=== PATIENT | male | born 1965 | race Two or more races ===

== ENCOUNTER 2019-09-28 10:06 | Emergency (ER) | payer BC ==
[2019-09-28] MEDS ORDERED: Pantoprazole 40 MG Vial IVPUSH ONE (10:13)
[2019-09-28] MEDS ORDERED: Alum Hydroxide/Mag Hydroxide 15 ML, Lidocaine 2% 15 ML PO ONE ×2 (10:13)
[2019-09-28] MEDS ORDERED: Sodium Chloride 0.9% 10 ML Syringe FLUSH PRN (10:13)
[2019-09-28] MEDS ORDERED: Aspirin 81 MG Tab.Chew PO ONE (10:14)
[2019-09-28] MEDS ORDERED: Ondansetron 4 MG/2 ML SDV IVPUSH ONE (10:24)
[2019-09-28] MEDS ORDERED: Iopamidol 755 Mg/ML 100 ML Bottle IV ONE (10:29)
[2019-09-28] MEDS ORDERED: HYDROmorphone 2 MG/ML SDV IVPUSH ONE (10:37)
[2019-09-28] MEDS ORDERED: Sodium Chloride 0.9% 1,000 ML IV SCH (10:45)
[2019-09-28] MEDS ORDERED: Prochlorperazine 10 MG/2 ML SDV IVPUSH ONE (11:22)
[2019-09-28] MEDS ORDERED: Ondansetron 4 MG Tab.DIS PO ONE (12:48)
[2019-09-28] MEDS ORDERED: Acetaminophen/oxyCODONE 325-5 MG Tab PO ONE (12:48)
--- NOTE | 2019-09-28 12:51 | EDM.PDOC ---
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 Rated severe,nothing helping. Sudden onset about 6:30 AM. He is previously healthy with the exception of HTN and tobacco abuse. He also endorses a h/o PUD last year,stress ulcer related. Epigastric Pain Score (Numeric/FACES): 8 - Related Data Allergies Allergy/AdvReac Type Severity Reaction Status Date / Time No Known Allergies Allergy Verified 09/28/19 10:24 Social & Family History - Tobacco Use Smoking Status *Q: Current Every Day Smoker ED ROS GENERAL - Review of Systems Review Of Systems: Comprehensive ROS is negative, except as noted in HPI. ED EXAM, GI/ABD - Physical Exam Exam: See Below Exam Limited By: No Limitations General Appearance: Alert Nose: Normal Inspection Respiratory/Chest: No Respiratory Distress, Lungs Clear Cardiovascular: Normal Peripheral Pulses GI/Abdominal Exam: Normal Bowel Sounds, Soft, No Mass, Distended, Tender. No: Guarding, Mass, Hepatomegaly, Splenomegaly Neurological: Alert, Oriented, CN II-XII Intact Psychiatric: Normal Affect, Normal Mood Skin Exam: Warm Lymphatic: No Adenopathy Course - Vital Signs Last Recorded V/S: Last Vital Signs Temp 97.3 F 09/28/19 10:06 Pulse 90 09/28/19 10:06 Resp 18 09/28/19 10:06 BP 146/91 H 09/28/19 10:06 Pulse Ox 94 L 09/28/19 10:06 - Orders/Labs/Meds Orders: Active Orders 24 hr Category Date Time Status EKG Documentation Completion [RC] ASDIRECTED Care 09/28/19 10:13 Active Chest Abdomen Pelvis w Cont [CT] Stat Exams 09/28/19 10:13 Taken Gallbladder [Abdomen Ltd] [US] Stat Exams 09/28/19 11:55 Taken Sodium Chloride 0.9% [Normal Saline] 1,000 ml Med 09/28/19 10:45 Active IV ASDIRECTED Sodium Chloride 0.9% [Saline Flush] Med 09/28/19 10:13 Active 10 ml FLUSH ASDIRECTED PRN Peripheral IV Insertion Adult [OM.PC] Routine Oth 09/28/19 10:12 Ordered EKG 12 Lead [EK] Routine Ther 09/28/19 10:12 Ordered Medication Orders Sodium Chloride (Normal Saline) 1,000 mls @ 999 mls/hr IV ASDIRECTED MELVIN Last Admin: 09/28/19 10:17 Dose: 999 mls/hr Documented by: GODFREY Sodium Chloride (Saline Flush) 10 ml FLUSH ASDIRECTED PRN PRN Reason: Keep Vein Open Labs: Laboratory Tests 09/28/19 09/28/19 09/28/19 Range/Units 10:10 10:10 10:10 WBC 6.0 (4.5-12.0) X10-3/uL RBC 5.81 H (4.30-5.75) x10(6)uL Hgb 16.9 (13.5-17.8) g/dL Hct 52.6 H (30.0-51.3) % MCV 90.5 (80-96) fL MCH 29.1 (27.7-33.6) pg MCHC 32.2 (32.2-35.4) g/dL RDW 12.3 (11.5-15.5) % Plt Count 378 H (125-369) X10(3)uL MPV 7.2 L (7.4-10.4) fL Neut % (Auto) 54.6 (46-82) % Lymph % (Auto) 29.3 (13-37) % Mayes % (Auto) 10.4 (4-12) % Eos % (Auto) 5 (1.0-5.0) % Baso % (Auto) 1 (0-2) % Neut # (Auto) 3.3 (1.6-8.3) # Lymph # (Auto) 1.7 (0.6-5.0) # Mayes # (Auto) 0.6 (0.0-1.3) # Eos # (Auto) 0.3 (0.0-0.8) # Baso # (Auto) 0.1 (0.0-0.2) # Sodium 144 (135-145) mmol/L Potassium 3.0 L (3.5-5.3) mmol/L Chloride 101 (100-110) mmol/L Carbon Dioxide 38 H (21-32) mmol/L BUN 10 (7-18) mg/dL Creatinine 1.2 (0.70-1.30) mg/dL Est Cr Clr Drug Dosing TNP Estimated GFR (MDRD) > 60 (>60) BUN/Creatinine Ratio 8.3 L (9-20) Glucose 197 H (80-116) mg/dL Calcium 9.0 (8.6-10.2) mg/dL Total Bilirubin 0.5 (0.1-1.3) mg/dL AST 27 H (5-25) IU/L ALT 50 H (12-36) U/L Alkaline Phosphatase 120 H (56-112) IU/L Troponin I 9.3 (4.0-60.3) pg/mL Total Protein 7.5 (6.0-8.0) g/dL Albumin 4.1 (3.5-5.2) g/dL Globulin 3.4 g/dL Albumin/Globulin Ratio 1.2 Amylase (25-115) U/L Lipase (73-393) U/L 09/28/19 09/28/19 Range/Units 10:10 10:10 WBC (4.5-12.0) X10-3/uL RBC (4.30-5.75) x10(6)uL Hgb (13.5-17.8) g/dL Hct (30.0-51.3) % MCV (80-96) fL MCH (27.7-33.6) pg MCHC (32.2-35.4) g/dL RDW (11.5-15.5) % Plt Count (125-369) X10(3)uL MPV (7.4-10.4) fL Neut % (Auto) (46-82) % Lymph % (Auto) (13-37) % Mayes % (Auto) (4-12) % Eos % (Auto) (1.0-5.0) % Baso % (Auto) (0-2) % Neut # (Auto) (1.6-8.3) # Lymph # (Auto) (0.6-5.0) # Mayes # (Auto) (0.0-1.3) # Eos # (Auto) (0.0-0.8) # Baso # (Auto) (0.0-0.2) # Sodium (135-145) mmol/L Potassium (3.5-5.3) mmol/L Chloride (100-110) mmol/L Carbon Dioxide (21-32) mmol/L BUN (7-18) mg/dL Creatinine (0.70-1.30) mg/dL Est Cr Clr Drug Dosing Estimated GFR (MDRD) (>60) BUN/Creatinine Ratio (9-20) Glucose (80-116) mg/dL Calcium (8.6-10.2) mg/dL Total Bilirubin (0.1-1.3) mg/dL AST (5-25) IU/L ALT (12-36) U/L Alkaline Phosphatase (56-112) IU/L Troponin I (4.0-60.3) pg/mL Total Protein (6.0-8.0) g/dL Albumin (3.5-5.2) g/dL Globulin g/dL Albumin/Globulin Ratio Amylase 62 (25-115) U/L Lipase 302 (73-393) U/L Meds: Medications Generic Name Dose Route Start Last Admin Trade Name Freq PRN Reason Stop Dose Admin Sodium Chloride 1,000 mls @ 999 mls/hr 09/28/19 10:45 09/28/19 10:17 Normal Saline IV 999 mls/hr ASDIRECTED MELVIN Administration Sodium Chloride 10 ml 09/28/19 10:13 Saline Flush FLUSH ASDIRECTED PRN Keep Vein Open Discontinued Medications Generic Name Dose Route Start Last Admin Trade Name Freq PRN Reason Stop Dose Admin Aspirin 324 mg 09/28/19 10:14 Aspirin PO 09/28/19 10:15 ONETIME ONE Al Hydroxide/Mg Hydroxide 15 0 ml 09/28/19 10:13 ml/ Lidocaine HCl 15 ml PO 09/28/19 10:14 ONETIME ONE Hydromorphone HCl 1 mg 09/28/19 10:37 09/28/19 10:44 Dilaudid IVPUSH 09/28/19 10:38 1 mg ONETIME ONE Administration Iopamidol 100 ml 09/28/19 10:29 09/28/19 11:07 Isovue-370 (76%) IV 09/28/19 10:30 100 ml . DIRECTED ONE Administration Ondansetron HCl 4 mg 07/03/20 10:24 09/28/19 10:41 Zofran IVPUSH 09/28/19 10:25 4 mg ONETIME ONE Administration Pantoprazole Sodium 40 mg 09/28/19 10:13 09/28/19 10:35 Protonix Iv IVPUSH 09/28/19 10:14 40 mg ONETIME ONE Administration Prochlorperazine Edisylate 10 mg 09/28/19 11:22 09/28/19 11:28 Compazine IVPUSH 09/28/19 11:23 10 mg ONETIME ONE Administration Departure - Departure Time of Disposition: 12:51 Disposition: Home, Self-Care 01 Condition: Good Clinical Impression: Abdominal pain - Discharge Information Referrals: PCP,Not In Area [Primary Care Provider] - Forms: ED Department Discharge Sepsis Event Note (ED) - Evaluation Sepsis Screening Result: No Definite Risk - Focused Exam Vital Signs: Vital Signs Temp Pulse Resp BP Pulse Ox 09/28/19 10:06 97.3 F 90 18 146/91 H 94 L - Problem List & Annotations (1) Gall stone SNOMED Code(s): 015765082 Code(s): K80.20 - CALCULUS OF GALLBLADDER W/O CHOLECYSTITIS W/O OBSTRUCTION Status: Acute Current Visit: Yes Qualifiers: Cholecystitis presence: without cholecystitis Biliary obstruction: without biliary obstruction Qualified Code(s): K80.20 - Calculus of gallbladder without cholecystitis without obstruction (2) HTN (hypertension) SNOMED Code(s): 64387555 Code(s): I10 - ESSENTIAL (PRIMARY) HYPERTENSION Status: Acute Current Visit: Yes Qualifiers: Hypertension type: essential hypertension Qualified Code(s): I10 - Essential (primary) hypertension (3) Tobacco abuse SNOMED Code(s): 410900931 Code(s): Z72.0 - TOBACCO USE Status: Acute Current Visit: Yes (4) Abdominal pain SNOMED Code(s): 13300049 Code(s): R10.9 - UNSPECIFIED ABDOMINAL PAIN Status: Acute Current Visit: Yes Qualifiers: Abdominal location: upper abdomen, unspecified Qualified Code(s): R10.10 - Upper abdominal pain, unspecified (5) Hypokalemia SNOMED Code(s): 46945875 Code(s): E87.6 - HYPOKALEMIA Status: Acute Current Visit: Yes - Problem List Review Problem List Initiated/Reviewed/Updated: Yes - My Orders Last 24 Hours: My Active Orders 09/28/19 10:12 Peripheral IV Insertion Adult [OM.PC] Routine EKG 12 Lead [EK] Routine 09/28/19 10:13 EKG Documentation Completion [RC] ASDIRECTED Chest Abdomen Pelvis w Cont [CT] Stat Sodium Chloride 0.9% [Saline Flush] 10 ml FLUSH ASDIRECTED PRN 09/28/19 10:45 Sodium Chloride 0.9% [Normal Saline] 1,000 ml IV ASDIRECTED 09/28/19 11:55 Gallbladder [Abdomen Ltd] [US] Stat - Assessment/Plan Last 24 Hours: My Active Orders 09/28/19 10:12 Peripheral IV Insertion Adult [OM.PC] Routine EKG 12 Lead [EK] Routine 09/28/19 10:13 EKG Documentation Completion [RC] ASDIRECTED Chest Abdomen Pelvis w Cont [CT] Stat Sodium Chloride 0.9% [Saline Flush] 10 ml FLUSH ASDIRECTED PRN 09/28/19 10:45 Sodium Chloride 0.9% [Normal Saline] 1,000 ml IV ASDIRECTED 09/28/19 11:55 Gallbladder [Abdomen Ltd] [US] Stat Plan: A CT showed a 7 mm stone in the cystic duct,with the US confirmed a neck stone. His labs are unremarkable-only K was low. I gave him NS,some Dilaudid and Zofran/Compazine. He improved.D/W Dr Vanegas. Will DC on oral narcotics,see PCP next week.
== END 2019-09-28 15:15 | disposition home or self-care (01) ==
LOC: FB.ED 10:06
DX: R10.13 Epigastric pain (principal); F17.200 Nicotine dependence, unspecified, uncomplicated
CPT/HCPCS: 36415; 71260; 74177; 76705; 80053; 82150; 83690; 84484; 85025; 93005; 93010; 96361; 96374; 96375; 99283; 99284-25; A9270-GY; C9113; J0780; J1170; J2405; J7030; Q9967